=== PATIENT | female | born 1990 | race Caucasian/White ===

== ENCOUNTER 2019-09-20 19:54 | Emergency (ER) | payer OTHER ==
[~2019-09-20] VITALS: Ht 157.5 cm; Wt 63.6 kg
[~2019-09-20 19:54] MED LIST: CLEOCIN HCL300 MG PO
[2019-09-20 19:57] VITALS: Ht 157.5 cm; Wt 63.6 kg
[2019-09-20 20:15] LABS: GLUCOSE NEGATIVE (NEGATIVE); HCG URINE NEGATIVE (NEGATIVE); KETONE NEGATIVE (NEGATIVE); NITRITE NEGATIVE (NEGATIVE); UROBILINOGEN NORMAL (NORMAL)
[2019-09-20 20:16] LABS: BILIRUBIN NEGATIVE (NEGATIVE)
[2019-09-20 20:19] LABS: BACTERIA MODERATE /hpf (NEGATIVE); EPITHELIAL CELLS 0-5 /hpf (0-5); RED CELLS - URINE 0-5 /hpf (0-5); WHITE CELLS - URINE 25-50 /hpf (NEGATIVE)
[2019-09-20 20:24] LABS: BASOPHILS 0.2 % (0-2); HEMATOCRIT 38.9 % (36.0-48.0); HEMOGLOBIN 12.9 g/dL (12-16); IMMATURE GRANULOCYTES 0.2 % (0-5); LYMPHOCYTES 20.9 % (15-50); MCH 28.4 pg (26.0-34.0); MCHC 33.2 g/dL (31.0-37.0); MCV 85.5 fL (80.0-100.0); MEAN PLATELET VOLUME 8.5 fL (7.4-10.4); MONOCYTES 9.9 % (2-11); NEUTROPHILS 67.8 % (40-80); PLATELET COUNT 276 10x3/uL (130-400); RBC 4.55 10x6/uL (4.00-5.40); RDW 12.9 % (11.5-14.5); WBC 11.4 10x3/uL (4.8-10.8)
[2019-09-20 20:33] LABS: CALC OSMOLALITY 265 mosm/kg (275-300); CALCIUM 9.1 mg/dL (8.5-10.1); CARBON DIOXIDE 28.5 mmol/L (21.0-32.0); CHLORIDE - SERUM 101 mmol/L (98-107); CREATININE - SERUM 0.9 mg/dL (0.6-1.3); GLUCOSE 99 mg/dL (74-106); POTASSIUM - SERUM 3.4 mmol/L (3.5-5.1); SODIUM 134 mmol/L (136-145); UREA NITROGEN 6 mg/dL (7-18); eGFR NON AFRICAN AMERICAN 77 mL/min (90-120)
[2019-09-20 20:39] LABS: ALKALINE PHOSPHATASE 92 U/L (30-120); ALT (SGPT) 31 U/L (10-68); BILIRUBIN - TOTAL 0.29 mg/dL (0.2-1.3); PROTEIN - SERUM 7.6 g/dL (6.4-8.2)
[2019-09-20 20:50] LABS: HCG SERUM NEGATIVE (NEGATIVE)
[2019-09-20] MEDS ORDERED: VIBRAMYCIN 100100 MG PO (22:19)
[2019-09-20] MEDS ORDERED: DICLOFENAC SODI50 MG PO (22:19)
[2019-09-21 00:10] VITALS: BP 116/68
== END 2019-09-21 00:46 | disposition home or self-care (01) ==
LOC: D.ER 19:54
PROVIDERS: Family Medicine
DX: R10.30 Lower abdominal pain, unspecified (principal); N73.9 Female pelvic inflammatory disease, unspecified; N83.201 Unspecified ovarian cyst, right side; N39.0 Urinary tract infection, site not specified; I10 Essential (primary) hypertension; Z72.0 Tobacco use; R30.9 Painful micturition, unspecified; M54.5 Low back pain